=== PATIENT | male | born 1980 | race Caucasian/White ===

== ENCOUNTER 2020-07-06 02:15 | Emergency (ER) | payer OTHER, SELFPAY ==
--- NOTE | ~2020-07-06 | XR_ITS ---
EXAMINATION: XR foot LT min 3V DATE: 07/06/2020 02:54 INDICATION: Right foot pain and laceration TECHNIQUE: Dorsoplantar, lateral, and 2 oblique views of the left foot were obtained. COMPARISON: None. FINDINGS: There is a 3 mm radiopaque density projecting medial to the distal aspect of the first dist al phalanx. No additional radiopaque foreign body is identified. Bone alignment is normal. There is n o fracture. Joint spaces are normal. IMPRESSION: 1. Possible foreign body projecting adjacent to the medial aspect of the first distal phalanx. Clinic ally correlate for injury at this site. Reviewed, dictated and finalized at location A. R ENGINEER IMPRESSION: 1. Possible foreign body projecting adjacent to the medial aspect of the first distal phalanx. Clinically correlate for injury at this site.
--- NOTE | ~2020-07-06 | XR_ITS ---
EXAMINATION: XR chest 2V DATE: 07/06/2020 02:56 INDICATION: Suicide attempt by ingestion TECHNIQUE: PA and lateral views of the chest are obtained. COMPARISON: None available FINDINGS: The lungs are free of acute opacities. There is no pleural effusion or pneumothorax. The ca rdiomediastinal silhouette is normal. The visualized bones and soft tissues are unremarkable. IMPRESSION: 1. No acute cardiopulmonary abnormality. Reviewed, dictated and finalized at location A. NG HAND
[2020-07-06 02:15] VITALS: BP 132/73; PULSE 105; RESP 20; TEMP 37.7; O2SAT 97
--- NOTE | 2020-07-06 02:30 | ECG_ITS ---
Measurements Intervals [place] Rate: 100 P: 73 NC: 131 QRS: 68 QRSD: 94 T: 49 QT: 328 QTc: 424 Interpretive Statements SINUS TACHYCARDIA BORDERLINE ECG Electronically Signed On 07-06-2020 8:11:47 REVENUE INSPECTOR by Kiko Dos Santos D.O.
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
[2020-07-06 02:54] LABS: Basophils Absolute Auto 0.04 K/mm3 (0.00-0.10); Basophils Percent Auto 0.3 % (0.0-1.0); Eosinophils Absolute Auto 0.06 K/mm3 (0.02-0.50); Eosinophils Percent Auto 0.5 % (1.0-6.0); Hematocrit 45.1 % (40.0-54.0); Hemoglobin 14.8 g/dL (14.0-18.0); Immature Granulocyte Absolute 0.08 K/mm3 (0.00-0.00); Immature Granulocyte Percent A 0.7 % (0.0-0.0); Lymphocytes Absolute Auto 2.42 K/mm3 (1.10-4.50); Lymphocytes Percent Auto 19.8 % (18.0-42.0); Mean Corpuscular HGB Conc 32.8 g/dL (32.0-36.0); Mean Corpuscular Hemoglobin 29.4 pg (27.0-31.0); Mean Corpuscular Volume 89.7 fL (78.0-102.0); Mean Platelet Volume 8.4 fl (8.7-11.0); Monocytes Absolute Auto 0.54 K/mm3 (0.10-0.90); Monocytes Percent Auto 4.4 % (2.0-11.0); Neutrophils Absolute Auto 9.1 K/mm3 (1.7-7.2); Neutrophils Percent Auto 74.3 % (50.0-70.0); Platelet Count Result 350 K/mm3 (150-420); Red Blood Count 5.03 M/mm3 (4.70-6.10); Red Cell Distribution Width 12.4 % (11.6-14.4); White Blood Count 12.2 K/mm3 (4.8-10.8)
[2020-07-06 03:07] VITALS: RESP 18
[2020-07-06 03:17] LABS: Alanine Aminotransferase 17 U/L (16-63); Albumin Level 3.8 g/dL (3.4-5.0); Alkaline Phosphatase 62 U/L (46-116); Anion Gap 11 mmol/L (8-16); Aspartate Amino Transferase 15 U/L (15-37); Bilirubin,Total 0.3 mg/dL (0.00-1.00); Blood Urea Nitrogen 12 mg/dL (7-18); Calcium 9.2 mg/dL (8.5-10.1); Carbon Dioxide 27 mmol/L (21-32); Chloride 102 mmol/L (98-108); Estimated CRCL calculation 62 ml/min; Estimated Glomerular Filt Rate 52; Glucose 97 mg/dL (70-99); Osmolality Calculated 289 mOsm/kg (285-295); Potassium 4.1 mmol/L (3.5-5.1); Sodium 140 mmol/L (136-145); Thyroid Stimulating Hormone 1.45 uIU/mL (0.36-3.74); Total Protein 7.5 g/dL (6.4-8.2)
[2020-07-06 03:18] LABS: Acetaminophen < 2 ug/mL (10-30); Ethanol < 3 mg/dL (0-6); Salicylate 1.4 mg/dL (2.8-20.0)
[2020-07-06 03:19] LABS: Phenytoin Dilantin < 1 ug/mL (10-20)
[2020-07-06] MEDS: LIDOCAINE HCL 1% LOCAL INJ 20 ML VIAL (03:34)
[2020-07-06] MEDS: AMOXICILLIN/CLAVULANATE K 875-125 MG TAB 1 TABLET PO (03:37)
--- NOTE | 2020-07-06 03:39 | PC.NURSE ---
Pt. tearful, crying and stating I'm a failure, I just want to be put down. Pt. cooperative c care, VSS.
[2020-07-06] MEDS: ACETAMINOPHEN 500 MG TABLET 1000 MG PO ×2 (04:30→10:16)
--- NOTE | 2020-07-06 04:34 | PC.NURSE ---
Pt. now reporting he has chills and body aches, low grade temp. noted. Pt. reports that his S.O. works c covid pts. at [place]. ERP notified, test ordered.
[2020-07-06 04:38] LABS: Add Urine Microscopic? YES; Appearance Urine Clear (Clear); Bilirubin Urine Negative (Negative); Blood Urine Negative (Negative); Color Urine Yellow (Yellow); Glucose Urine UA Negative (Negative); Ketones Urine Negative (Negative); Leukocyte Esterase Ur Negative LEU/UL (Negative); Nitrate Urine Negative (Negative); Protein Urine 1+ (Negative); Specific Grav Ur 1.015 (1.010-1.020); Urobilinogen Urine 0.2 mg/dL (0.2-1.0)
[2020-07-06 04:43] LABS: RBC Urine 0-2 /hpf (0-2); WBC Urine 0-3 /hpf (0-3)
[2020-07-06 04:44] LABS: Bacteria Urine 1+ /hpf; Squamous Epithelial Cell Urine Rare /hpf (Few)
[2020-07-06 04:48] LABS: Amphetamine Screen Urine Positive (Negative); Barbiturate Screen Urine Negative (Negative); Benzodiazepines Screen Urine Negative (Negative); Cannabinoid Screen Urine Negative (Negative); Cocaine Screen Urine Negative (Negative); Methadone Screen Urine Negative (Negative); Opiate Screen Urine Negative (Negative); Phencyclidine Screen Urine Negative (Negative)
[2020-07-06 04:54] LABS: SARS-CoV-2 Ag Negative (Negative)
--- NOTE | 2020-07-06 05:00 | PC.NURSE ---
Pt. medically cleared, call placed to [facility] for pt. eval. and consult c counselor. VSS.
[2020-07-06 08:06] VITALS: BP 120/70; PULSE 89; RESP 20; TEMP 36.8; O2SAT 99
--- NOTE | 2020-07-06 08:12 | PC.NURSE ---
Call placed to pts. g-friend at pt. request and update on status given. Pt. lying in bed, tearful at this time.
--- NOTE | 2020-07-06 09:29 | PC.NURSE ---
Sitter at bedside, pt. ate breakfast, no c/o at this time. Awaiting call back from [facility] for mental health placement.
--- NOTE | 2020-07-06 11:02 | PC.NURSE ---
voluntary consent signed by pt. for placement and faxed back to [facility]. Report given to Savanna Vicente
--- NOTE | 2020-07-06 12:47 | PC.NURSE ---
Poison control contacted. only recommendation is to repeat cmp to recheck creatinine level. case # [id number] and spoke with ART
[2020-07-06 12:53] LABS: Influenza Control Valid (Valid)
[2020-07-06 13:30] LABS: Alanine Aminotransferase 17 U/L (16-63); Albumin Level 3.4 g/dL (3.4-5.0); Alkaline Phosphatase 64 U/L (46-116); Anion Gap 9 mmol/L (8-16); Aspartate Amino Transferase 12 U/L (15-37); Bilirubin,Total 0.4 mg/dL (0.00-1.00); Blood Urea Nitrogen 13 mg/dL (7-18); Calcium 8.8 mg/dL (8.5-10.1); Carbon Dioxide 26 mmol/L (21-32); Chloride 102 mmol/L (98-108); Estimated CRCL calculation 71 ml/min; Estimated Glomerular Filt Rate > 60; Glucose 104 mg/dL (70-99); Osmolality Calculated 284 mOsm/kg (285-295); Potassium 3.7 mmol/L (3.5-5.1); Sodium 137 mmol/L (136-145); Total Protein 6.7 g/dL (6.4-8.2)
[2020-07-06 13:46] VITALS: BP 117/74; PULSE 72; RESP 16; O2SAT 99
[2020-07-06 14:50] VITALS: BP 106/71; PULSE 98; RESP 20; TEMP 37.1; O2SAT 100
[2020-07-06] MEDS: IBUPROFEN 400 MG TABLET 800 MG PO (14:59)
--- NOTE | 2020-07-06 15:05 | PC.NURSE ---
1430 Pt talking with sitter . Introduced self , food tray disposed of . pt ate 100%. 1500 pt resting per cot, talking with girlfriend on the phone.requested pain medication. reported 3/10 tooth pain, MORGAN Owens notified and Dr Jamison notified of same.
--- NOTE | 2020-07-06 15:21 | PC.NURSE ---
[facility] IN [place] CALLED FOR NURSE TO NURSE. SPOKE WITH CRISTIAN, AWAITING RETURN CALL FOR ACCEPTANCE.
--- NOTE | 2020-07-06 15:28 | PC.NURSE ---
Pt continues talking on the phone to girlfriend
--- NOTE | 2020-07-06 15:42 | PC.NURSE ---
Pt accepted to the [facility] in [facility] per dr Pierce.
[2020-07-06 15:53] VITALS: BP 111/69; PULSE 98; RESP 20; TEMP 37.1; O2SAT 98
--- NOTE | 2020-07-06 15:57 | PC.NURSE ---
food requested. sandwich, chips and soda provided.
--- NOTE | 2020-07-06 16:10 | PC.NURSE ---
pt ate food provided. spoke with girlfriend on the phone. awaiting aas for transfer.
--- NOTE | 2020-07-06 16:27 | PC.NURSE ---
girlfriend here with personal clothing for pt to take with him. visiting at bedside. gbaas here, MORGAN Owens gave report to ems staff Gilberto. loaded to ems cot, cooperative with all care.
[2020-07-08 11:53] LABS: Lithium <0.15 mmol/L (0.60-1.20)
[2020-07-09 16:37] LABS: Valproic Acid <4.0 mg/L (50.0-100.0)
[2020-07-11 05:26] LABS: Carbamazepine Tegretol <0.2 mcg/mL (4.0-12.0)
== END 2020-07-06 16:42 ==
PROVIDERS: Family Medicine; Emergency Provider Emergency Medicine
DX: K02.9 Dental caries, unspecified (principal); R45.851 Suicidal ideations; S91.311A Laceration without foreign body, right foot, initial encounter; W45.8XXA Other foreign body or object entering through skin, initial encounter
CPT/HCPCS: 12002; 36415; 71046; 73630; 80053; 80156; 80164; 80178; 80185; 80307; 81001; 84443; 85025; 87426; 87804; 93005; 99285; A9270

== ENCOUNTER 2020-11-25 13:50 | Outpatient (CLI) | payer OTHER, SELFPAY ==
--- NOTE | 2020-11-25 15:22 | NEURO_ITS ---
Patient Number: [id number] Impression: # Complains of numbness of hands and legs. # Bilateral Carpal Tunnel Syndrome of moderate degree. # No ulnar neuropathy. # Normal nerve conduction study of lower extremities. # Needle/EMG exam not requested. Nerve Conduction Studies Anti Sensory Summary Table Stim Site NR Peak (ms) P-T Amp (?V) Site1 Site2 Delta-P (ms) Dist (cm) Didier (m/s) Left Median Anti Sensory (2-3nd Digit) Wrist 3.9 36.0 Wrist 2-3nd Digit 3.9 14.0 36 Wrist 4.1 28.8 Wrist 2-3nd Digit 3.9 14.0 36 Right Median Anti Sensory (2-3nd Digit) Wrist 5.2 8.4 Wrist 2-3nd Digit 5.2 14.0 27 Wrist 5.7 22.6 Wrist 2-3nd Digit 5.2 14.0 27 Left Radial Anti Sensory (Base 1st Digit) Wrist 2.1 25.0 Wrist Base 1st Digit 2.1 0.0 Right Radial Anti Sensory (Base 1st Digit) Wrist 2.7 12.6 Wrist Base 1st Digit 2.7 0.0 Left Sup Fibular Anti Sensory (Ant Lat Mall) 14 cm 3.7 13.5 14 cm Ant Lat Mall 3.7 16.0 43 Right Sup Fibular Anti Sensory (Ant Lat Mall) 14 cm 3.5 35.5 14 cm Ant Lat Mall 3.5 16.0 46 Left Sural Anti Sensory (Lat Mall) Calf 3.9 20.9 Calf Lat Mall 3.9 16.0 41 Right Sural Anti Sensory (Lat Mall) Calf 3.9 9.2 Calf Lat Mall 3.9 16.0 41 Left Ulnar Anti Sensory (5th Digit) Wrist 2.8 10.4 Wrist 5th Digit 2.8 14.0 50 Right Ulnar Anti Sensory (5th Digit) Wrist 2.8 13.3 Wrist 5th Digit 2.8 14.0 50 Motor Summary Table Stim Site NR Onset (ms) O-P Amp (mV) Site1 Site2 Delta-0 (ms) Dist (cm) Didier (m/s) Left Median Motor (Abd Poll Brev) Wrist 5.9 2.6 Elbow Wrist 5.0 28.0 56 Elbow 10.9 2.4 Right Median Motor (Abd Poll Brev) Wrist 5.2 2.3 Elbow Wrist 4.9 27.0 55 Elbow 10.1 2.3 Left Peroneal Motor (Vastus Med) Ankle 5.7 0.7 Popit Ankle 8.3 40.0 48 Popit 14.0 0.4 Right Peroneal Motor (Vastus Med) Ankle 5.2 0.3 Popit Ankle 9.2 40.0 43 Popit 14.4 1.1 Left Tibial Motor (Abd Kim Brev) Ankle 4.5 0.6 Knee Ankle 8.1 42.0 52 Knee 12.6 1.3 Right Tibial Motor (Abd Kim Brev) Ankle 4.6 3.7 Knee Ankle 8.7 42.0 48 Knee 13.3 4.1 Left Ulnar Motor (Abd Dig Minimi) Wrist 3.0 8.1 A Elbow Wrist 4.8 28.0 58 A Elbow 7.8 7.2 Right Ulnar Motor (Abd Dig Minimi) Wrist 3.0 8.2 A Elbow Wrist 5.1 29.0 57 A Elbow 8.1 7.3 F Wave Studies NR F-Lat (ms) L-R F-Lat (ms) Left Median (Mrkrs) (Abd Poll Brev) 31.75 0.94 Right Median (Mrkrs) (Abd Poll Brev) 32.69 0.94 Left Peroneal (Mrkrs) (EDB) 50.69 0.28 Right Peroneal (Mrkrs) (EDB) 50.41 0.28 Left Tibial (Mrkrs) (Abd Hallucis) 51.37 1.05 Right Tibial (Mrkrs) (Abd Hallucis) 50.32 1.05 Left Ulnar (Mrkrs) (Abd Dig Min) 30.82 0.70 Right Ulnar (Mrkrs) (Abd Dig Min) 30.12 0.70 Nerve Conduction Studies Anti Sensory Summary Table Stim Site NR Peak (ms) P-T Amp (?V) Site1 Site2 Delta-P (ms) Dist (cm) Didier (m/s) Left Median Anti Sensory (2-3nd Digit) Wrist 3.9 36.0 Wrist 2-3nd Digit 3.9 14.0 36 Wrist 4.1 28.8 Wrist 2-3nd Digit 3.9 14.0 36 Right Median Anti Sensory (2-3nd Digit) Wrist 5.2 8.4 Wrist 2-3nd Digit 5.2 14.0 27 Wrist 5.7 22.6 Wrist 2-3nd Digit 5.2 14.0 27 Left Radial
== END 2020-11-25 13:51 | disposition home or self-care (01) ==
PROVIDERS: PCP Family Medicine; Visit Provider Family Medicine
DX: R20.2 Paresthesia of skin (principal); G56.03 Carpal tunnel syndrome, bilateral upper limbs
CPT/HCPCS: 95886; 95913

== ENCOUNTER 2021-01-02 20:04 | Emergency (ER) | payer OTHER, SELFPAY ==
--- NOTE | ~2021-01-02 | XR_ITS ---
XR ankle RT min 3V DATE: 01/02/2021 20:47 INDICATION: Fall. Right ankle injury, pain for views TECHNIQUE: 4 views COMPARISON: None FINDINGS: No fracture or dislocation of the ankle or disruption of the ankle mortise. IMPRESSION: No fracture or dislocation Reviewed, dictated and finalized at location A. IMPRESSION: No fracture or dislocation
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
[2021-01-02 20:13] VITALS: BP 130/84; PULSE 78; RESP 20; TEMP 36.6; O2SAT 100
[2021-01-02 20:32] LABS: Basophils Absolute Auto 0.06 K/mm3 (0.00-0.10); Basophils Percent Auto 0.9 % (0.0-1.0); Eosinophils Percent Auto 1.5 % (1.0-6.0); Hematocrit 42.1 % (40.0-54.0); Hemoglobin 14.2 g/dL (14.0-18.0); Immature Granulocyte Absolute 0.03 K/mm3 (0.00-0.00); Immature Granulocyte Percent A 0.4 % (0.0-0.0); Lymphocytes Absolute Auto 3.84 K/mm3 (1.10-4.50); Lymphocytes Percent Auto 57.2 % (18.0-42.0); Mean Corpuscular HGB Conc 33.7 g/dL (32.0-36.0); Mean Corpuscular Hemoglobin 30.2 pg (27.0-31.0); Mean Corpuscular Volume 89.6 fL (78.0-102.0); Mean Platelet Volume 9.4 fl (8.7-11.0); Monocytes Absolute Auto 0.48 K/mm3 (0.10-0.90); Monocytes Percent Auto 7.2 % (2.0-11.0); Neutrophils Absolute Auto 2.2 K/mm3 (1.7-7.2); Neutrophils Percent Auto 32.8 % (50.0-70.0); Platelet Count Result 235 K/mm3 (150-420); Red Cell Distribution Width 12.5 % (11.6-14.4); White Blood Count 6.7 K/mm3 (4.8-10.8)
[2021-01-02] MEDS: SODIUM CHLORIDE 0.9% IV 1,000 ML 999 ML IV CONT (20:45)
--- NOTE | 2021-01-02 20:45 | PC.NURSE ---
Pt. lying in bed calling for help from Veronica, and continues to cry and ramble having flight of ideas. Handcuffs removed by Anastacio STEINER who is here at pt. bedside. Pt. is unable to be redirected, will stop to answer a few questions when prompted and then go back to yelling and calling for Veronica .
[2021-01-02 20:47] VITALS: BP 124/75; PULSE 80; RESP 18; O2SAT 98
[2021-01-02 20:54] LABS: Acetaminophen < 2 ug/mL (10-30); Alanine Aminotransferase 20 U/L (16-63); Albumin Level 3.9 g/dL (3.4-5.0); Alkaline Phosphatase 63 U/L (46-116); Anion Gap 16 mmol/L (8-16); Aspartate Amino Transferase 20 U/L (15-37); Bilirubin,Total 0.5 mg/dL (0.00-1.00); Blood Urea Nitrogen 16 mg/dL (7-18); Calcium 9.2 mg/dL (8.5-10.1); Carbon Dioxide 19 mmol/L (21-32); Chloride 106 mmol/L (98-108); Estimated CRCL calculation 64 ml/min; Estimated Glomerular Filt Rate 55; Ethanol < 3 mg/dL (0-6); Glucose 99 mg/dL (70-99); Osmolality Calculated 293 mOsm/kg (285-295); Potassium 3.5 mmol/L (3.5-5.1); Sodium 141 mmol/L (136-145); Thyroid Stimulating Hormone 1.09 uIU/mL (0.36-3.74); Total Protein 7.1 g/dL (6.4-8.2)
[2021-01-02 20:55] LABS: Salicylate 2.1 mg/dL (2.8-20.0)
[2021-01-02 21:27] LABS: Add Urine Microscopic? YES; Appearance Urine Clear (Clear); Bilirubin Urine Negative (Negative); Blood Urine Negative (Negative); Color Urine Yellow (Yellow); Glucose Urine UA Negative (Negative); Ketones Urine 1+ (Negative); Leukocyte Esterase Ur Negative LEU/UL (Negative); Nitrate Urine Negative (Negative); Protein Urine Negative (Negative); Specific Grav Ur 1.015 (1.010-1.020); Urobilinogen Urine 0.2 mg/dL (0.2-1.0)
[2021-01-02 21:35] LABS: Amphetamine Screen Urine Positive (Negative); Barbiturate Screen Urine Negative (Negative); Benzodiazepines Screen Urine Negative (Negative); Cannabinoid Screen Urine Negative (Negative); Cocaine Screen Urine Negative (Negative); Methadone Screen Urine Negative (Negative); Opiate Screen Urine Negative (Negative); Phencyclidine Screen Urine Negative (Negative)
[2021-01-02 21:38] LABS: Bacteria Urine None seen /hpf; RBC Urine 0-2 /hpf (0-2); Squamous Epithelial Cell Urine None seen /hpf (Few); WBC Urine 0-3 /hpf (0-3)
[2021-01-02 21:39] LABS: Mucus Urine Moderate /lpf
[2021-01-02] MEDS: LORazepam INJ (*CRX) 2 MG/ML VIAL IV PUSH (21:44)
--- NOTE | 2021-01-02 22:00 | PC.NURSE ---
Pt. is medically cleared for d/c c Police. ERP explained to pt about drug use/abuse and info about rehab. Pt. then given clothing and pt. dressed self. Officer in room c pt. and pt. now completely A&O x3 and asking questions appropriately about bonds and phone calls. Pt. walked s assistance from bed to w/c for d/c in handcuffs c police.
[2021-01-02 22:03] VITALS: BP 132/71; PULSE 82; RESP 20; TEMP 36.6; O2SAT 100
== END 2021-01-02 22:10 ==
PROVIDERS: Emergency Provider Emergency Medicine; PCP Family Medicine
DX: F22 Delusional disorders (principal); F15.10 Other stimulant abuse, uncomplicated; E86.0 Dehydration
CPT/HCPCS: 36415; 73610; 80053; 80307; 81001; 84443; 85025; 96361; 96374; 99283; 99284; J2060; J7030

== ENCOUNTER 2021-01-04 10:22 | Emergency (ER) | payer OTHER, SELFPAY ==
[2021-01-04 10:25] VITALS: BP 119/87; PULSE 81; RESP 26; TEMP 37.1; O2SAT 99
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
[2021-01-04] MEDS: LORazepam INJ (*CRX) 2 MG/ML VIAL IM (10:35)
[2021-01-04] MEDS: HALOPERIDOL LACTATE 5 MG/ML VIAL IM (10:44)
--- NOTE | 2021-01-04 10:46 | PC.NURSE ---
POLICE REMAIN AT BEDSIDE WITH PATIENT IN CUFFS. PER OFFICER AKBAR, PT WILL REMAIN IN POLICE CUSTODY. MEDICATIONS ADMINISTERED ORDERED TO CALM PATIENT FOR TRANSPORTATION TO PRISON. PT CONTINUES TO SCREAM AND CRY. PT HITTING HIS HEAD AGAINST BED RAILS THEN THROWS HIMSELF OFF OF THE STRETCHER. UPON EXAM, NO INJURY DETECTED. PT IS LOWERED TO THE FLOOR AND REMAINS ON MATTRESS.
[2021-01-04 11:06] VITALS: RESP 22
== END 2021-01-04 11:05 ==
PROVIDERS: Emergency Provider Emergency Medicine
DX: F41.9 Anxiety disorder, unspecified (principal)
CPT/HCPCS: 96372; 99283; 99284; J1630; J2060